=== PATIENT | female | born 1980 | race Caucasian/White ===

== ENCOUNTER 2016-12-02 14:50 | Emergency (ER) | payer OTHER ==
--- NOTE | 2016-12-02 14:52 | PDOC ---
History of Present Illness - General History Source: Patient Exam Limitations: No Limitations - History of Present Illness Initial Comments: 12/02/16 14:58 The patient is a 36 year old female, with a significant past medical history of polycystic ovary disease, IBS, asthma, and hypothyroidism, who presents to the emergency department with left side abdominal pain for 2 hours. She denies any recent injury or trauma. She denies any over the counter medications for alleviation. She describes her pain as a burning and shooting sensation. She denies any back pain. LMP was last week. She denies recent fevers, chills, headache or dizziness. She denies recent nausea, vomit, diarrhea or constipation. She denies recent dysuria, vaginal discharge, or vaginal bleeding. Allergies: See Nursing Notes. Past surgical history: None reported. Social history: Nonsmoker. Denies EtOH use and recreational drug use. <Byron Bishop - Last Filed: 12/02/16 15:42> <Enrique Ledezma - Last Filed: 12/02/16 18:24> - General Chief Complaint: Pain Stated Complaint: LEFT SIDE ABD PAIN Time Seen by Provider: 12/02/16 14:51 Past History <Byron Bishop - Last Filed: 12/02/16 15:42> - Past Medical History Anemia: No Asthma: Yes (NO RECENT ATTACK) Cancer: No Cardiac Disorders: No CVA: No COPD: No CHF: No Dementia: No Diabetes: No GI Disorders: Yes (IBS) Disorders: No HTN: No Hypercholesterolemia: No Liver Disease: No Seizures: No Thyroid Disease: Yes (HYPOTHYROID DISEASE) - Surgical History Abdominal Surgery: No Appendectomy: No Cardiac Surgery: No Cholecystectomy: No Lung Surgery: No Neurologic Surgery: No Orthopedic Surgery: No - Psycho/Social/Smoking Cessation Hx Anxiety: No Suicidal Ideation: No Smoking History: Never smoked Have you smoked in the past 12 months: No Hx Alcohol Use: No Drug/Substance Use Hx: Yes (OCCASIONAL) Substance Use Type: None Hx Substance Use Treatment: No <Enrique Ledezma - Last Filed: 12/02/16 18:24> - Past Medical History Allergies/Adverse Reactions: Allergies Allergy/AdvReac Type Severity Reaction Status Date / Time cefdinir [From Omnicef] Allergy Verified 12/02/16 14:51 moxifloxacin HCl Allergy Hives Verified 12/02/16 14:51 [From Avelox] Home Medications: Ambulatory Orders Levothyroxine [Synthroid -] 100 mcg PO DAILY 07/31/13 Amitriptyline HCl [Elavil -] 50 mg PO DAILY 12/02/16 Norethindrone 0.35 mg PO DAILY 12/02/16 Ranitidine HCl [Zantac] 150 mg PO BID 12/02/16 Sertraline HCl [Zoloft] 150 mg PO DAILY 12/02/16 Abd/GI Specific PMHX - Complaint Specific PMHX GERD: No GI Ulcer Disease: No <Enrique Ledezma - Last Filed: 12/02/16 18:24> Review of Systems - Review of Systems Able to Perform ROS?: Yes Comments:: 12/02/16 14:59 GENERAL/CONSTITUTIONAL: No: fever, chills, weakness, loss of appetite. HEAD, EYES, EARS, NOSE AND THROAT: No: change in vision, ear pain, discharge, sore throat, throat swelling. CARDIOVASCULAR: No: chest pain, lightheadedness, palpitations, syncope RESPIRATORY: No: cough, shortness of breath, wheezing, hemoptysis, stridor. GASTROINTESTINAL:+left sided abd pain. No: nausea, vomiting, diarrhea, abdominal cramping, rectal bleeding, constipation. GENITOURINARY: No: dysuria, hematuria, frequency, urgency, flank pain. MUSCULOSKELETAL: No: back pain, neck pain, joint pain, muscle swelling or pain SKIN : No: lesions, pallor, rash or easy bruising. NEUROLOGIC: No: headache, vertigo, paresthesias, weakness ENDOCRINE: No: unexplained weight gain or loss HEMATOLOGIC/LYMPHATIC: No: anemia, easy bleeding, swelling nodes. <Byron Bishop - Last Filed: 12/02/16 15:42> *Physical Exam - Physical Exam Comments: 12/02/16 14:59 GENERAL: The patient is in no acute distress. HEAD: Normal with no signs of trauma. EYES: PERRLA, EOMI, sclera anicteric, conjunctiva clear. ENT: Ears normal, nares patent, oropharynx clear without exudates. Moist mucous membranes. NECK: Normal range of motion, supple without lymphadenopathy, JVD, or masses. LUNGS: Breath sounds equal, clear to auscultation bilaterally. No wheezes, and no crackles. HEART: Regular rate and rhythm, normal S1 and S2 without murmur, rub or gallop. ABDOMEN: Tenderness left lower quadrant. Soft, normoactive bowel sounds. No guarding, no rebound. No masses palpable. EXTREMITIES: Normal range of motion, no edema. No clubbing or cyanosis. No erythema, or tenderness. NEUROLOGICAL: Cranial nerves II through XII grossly intact. Normal speech. No focal neurological deficits. MUSCULOSKELETAL: Back non-tender to palpation, no CVA tenderness SKIN: Warm, Dry, normal turgor, no rashes or lesions noted. <Byron Bishop - Last Filed: 12/02/16 15:42> ED Treatment Course - LABORATORY CBC & Chemistry Diagram: 12/02/16 15:15 12/02/16 15:15 <Byron Bishop - Last Filed: 12/02/16 15:42> - LABORATORY CBC & Chemistry Diagram: 12/02/16 15:15 12/02/16 15:15 - ADDITIONAL ORDERS Additional order review: 12/02/16 18:21 Pt is doing well, pain is subsiding. 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 Discharge home. <Enrique Ledezma - Last Filed: 12/02/16 18:24> *DC/Admit/Observation/Transfer - Attestations Scribe Attestion: 12/02/16 14:56 Documentation prepared by Byron Bishop, acting as medical doctor nuclear medicine for Enrique Ledezma MD. <Byron Bishop - Last Filed: 12/02/16 15:42> - Discharge Dispostion Admit: No <Enrique Ledezma - Last Filed: 12/02/16 18:24> Diagnosis at time of Disposition: Abdominal pain Qualifiers: Abdominal location: left lower quadrant Qualified Code(s): R10.32 - Left lower quadrant pain - Discharge Dispostion Disposition: HOME Condition at time of disposition: Good - Patient Instructions Printed Discharge Instructions: DI for Abdominal Pain-Adult Additional Instructions: Fluids, rest, Motrin If worsen return to ER
[2016-12-02] MEDS ORDERED: SODIUM CHLORIDE 1,000 ML IV SCH (15:15)
[2016-12-02 15:16] VITALS: PULSE 93; TEMP 98.3; BMI 38.7
[2016-12-02 15:38] LABS: BASOPHIL 2.1 % (0-2.0); EOSINOPHIL 1.2 % (0-4.5); MCHC 34.4 g/dl (32.0-36.0); MEAN CELL VOLUME 84.2 fl (80-96); MEAN PLT VOLUME 7.2 fl (7.5-11.1); NEUTROPHILS 70.9 % (42.8-82.8); PLATELET COUNT 381 K/MM3 (134-434); RDW 12.6 % (11.6-15.6)
[2016-12-02 15:52] LABS: ALBUMIN 4.2 g/dl (3.5-5.0); ALK PHOS 48 U/L (32-92); ANION GAP 6 (8-16); CO2 29 mmol/L (22-28); CREATININE 0.9 mg/dl (0.6-1.3); GLUCOSE,RANDOM 103 mg/dl (74-106); SGOT/AST 32 U/L (10-42); SGPT/ALT 32 U/L (10-40); TOT PROT 7.4 g/dl (6.4-8.3)
[2016-12-02 16:08] LABS: BILIRUBIN,TOTAL < 0.3 mg/dl (0.2-1.0)
[2016-12-02 16:26] LABS: PH,URINE 7.5 (4.5-8); URINE APPEARANCE Clear; URINE BILIRUBIN Negative (NEGATIVE); URINE BLOOD Trace-intact (NEGATIVE); URINE GLUCOSE (UA) Negative (NEGATIVE); URINE KETONE Negative (NEGATIVE); URINE LEUK ESTERASE Trace (NEGATIVE); URINE NITRITE Negative (NEGATIVE); URINE PROTEIN Negative (NEGATIVE); URINE UROBILINOGEN 0.2 E.U/dl (0.2-1.0)
[2016-12-02 16:28] LABS: URINE COLOR YELLOW
[2016-12-02 17:26] VITALS: BP 105/56
== END 2016-12-02 18:25 | disposition home or self-care (01) ==
LOC: FER 14:50
PROC: 3E0337Z Introduction of Electrolytic and Water Balance Substance into Peripheral Vein, Percutaneous Approach (ICD-10-PCS; principal; 2016-12-02)
DX: R10.32 Left lower quadrant pain (principal); E28.2 Polycystic ovarian syndrome; K58.9 Irritable bowel syndrome, unspecified; J45.909 Unspecified asthma, uncomplicated; E03.9 Hypothyroidism, unspecified
CPT/HCPCS: 36415; 74177-TC; 80053; 81003; 84703; 85025; 99282-25

== ENCOUNTER 2017-03-10 16:42 | Emergency (ER) | payer OTHER ==
[2017-03-10 17:03] VITALS: PULSE 95; TEMP 98.3; BMI 37.2
[2017-03-10 17:30] LABS: BASOPHIL 0.9 % (0-2.0); EOSINOPHIL 2.6 % (0-4.5); MCH 28.9 pg (25.7-33.7); MCHC 33.8 g/dl (32.0-36.0); MEAN CELL VOLUME 85.7 fl (80-96); MEAN PLT VOLUME 7.8 fl (7.5-11.1); NEUTROPHILS 67.9 % (42.8-82.8); PLATELET COUNT 329 K/MM3 (134-434); RDW 12.7 % (11.6-15.6); WHITE BLOOD COUNT 5.5 K/mm3 (4.0-10.8)
--- NOTE | 2017-03-10 17:34 | PDOC ---
History of Present Illness - General History Source: Patient (Referred by Dr. Gilbert for Chest pain / SOB. ) Exam Limitations: No Limitations - History of Present Illness Associated Symptoms: reports: chest pain, shortness of breath <Demetrius Feldman - Last Filed: 03/10/17 18:42> - General History Source: Patient (Patient provided the information about chest pain at deep inspiration. Dr Gee examined patient in the office, concerned she may have a PE. ) Exam Limitations: No Limitations - History of Present Illness Timing/Duration: unsure, getting worse Severity: mild, moderate Associated Symptoms: reports: denies symptoms <Kyrie Huynh S - Last Filed: 03/13/17 12:40> - General Chief Complaint: Chest Pain Stated Complaint: CHEST PAIN, R/O PE Time Seen by Provider: 03/10/17 17:02 Past History - Past Medical History Asthma: Yes Psychiatric Problems: Yes (anxiety, depression) Other medical history: Hypothyroid, GERD, chronic fatigue, - Surgical History Abdominal Surgery: Yes (C-sectionx1) GI Surgery: Yes (colonoscopy) Other Surgical History: 03/10/17 18:44 Septoplasty.(2012) - Family Disease History Family Disease History: Other: Father (HTN, CT, Sleep apnea), Mother (HTN, Hypercholesterolemia) <Demetrius Feldman - Last Filed: 03/10/17 18:42> - Travel Traveled outside of the country in the last 30 days: Yes Close contact w/someone who was outside of country & ill: Yes - Past Medical History Anemia: No Asthma: Yes (NO RECENT ATTACK) Cancer: No Cardiac Disorders: No CVA: No COPD: No CHF: No Dementia: No Diabetes: No GI Disorders: Yes (IBS) Disorders: No HTN: No Hypercholesterolemia: No Liver Disease: No Psychiatric Problems: Yes (anxiety) Seizures: No Thyroid Disease: Yes (HYPOTHYROID DISEASE) Other medical history: MIGRAINE - Surgical History Abdominal Surgery: No Appendectomy: No Cardiac Surgery: No Cholecystectomy: No Lung Surgery: No Neurologic Surgery: No Orthopedic Surgery: No - Immunization History Immunization Up to Date: Yes - Suicide/Smoking/Psychosocial Hx Smoking History: Never smoked Have you smoked in the past 12 months: No Hx Alcohol Use: No Drug/Substance Use Hx: No Substance Use Type: None Hx Substance Use Treatment: No <Kyrie Huynh - Last Filed: 03/13/17 12:40> - Past Medical History Allergies/Adverse Reactions: Allergies Allergy/AdvReac Type Severity Reaction Status Date / Time cefdinir [From Omnicef] Allergy Verified 03/10/17 16:53 moxifloxacin HCl Allergy Hives Verified 03/10/17 16:53 [From Avelox] Home Medications: Ambulatory Orders Levothyroxine [Synthroid -] 100 mcg PO DAILY 07/31/13 Amitriptyline HCl [Elavil -] 50 mg PO DAILY 12/02/16 Norethindrone 0.35 mg PO DAILY 12/02/16 Ranitidine HCl [Zantac] 150 mg PO BID 12/02/16 Sertraline HCl [Zoloft] 100 mg PO DAILY 12/02/16 Ascorbate Calcium/Bioflavonoid [Maggie-C 1,000 mg Tablet] 1 each PO ASDIR Diclofenac Sodium 0 mg PO PRN PRN 03/10/17 Metformin HCl 500 mg PO HS 03/10/17 Review of Systems - Review of Systems Respiratory: Yes: Shortness of Breath Cardiac (ROS): Yes: Chest Pain All Other Systems: Reviewed and Negative <Demetrius Feldman - Last Filed: 03/10/17 18:42> - Review of Systems Able to Perform ROS?: Yes Is the patient limited Maori proficient: Yes Constitutional: No: Symptoms Reported, See HPI, Chills, Diaphoresis, Fever, Loss of Appetite, Malaise, Night Sweats, Weakness, Weight Stable, Unintentional Wgt. Loss, Unexplained wgt Loss, Other HEENTM: No: Symptoms Reported, See HPI, Eye Pain, Blurred Vision, Tearing, Recent change in vision, Double Vision, Cataracts, Ear Pain, Ocular Prothesis, Ear Discharge, Nose Pain, Nose Congestion, Tinnitus, Nose Bleeding, Hearing Loss , Throat Pain, Throat Swelling, Mouth Pain, Dental Problems, Difficulty Swallowing, Mouth Swelling, Other Respiratory: Yes: Other (Mild to moderate tenderness left upper chest at certain motions and deep inspiration) Cardiac (ROS): No: Symptoms Reported, See HPI, Chest Pain, Edema, Irregular Heart Rate, Lightheadedness, Palpitations, Syncope, Chest Tightness, Other ABD/GI: No: Symptoms Reported, See HPI, Abdominal Distended, Abd. Pain w/ defecation, Blood Streaked Bowels, Constipated, Diarrhea, Difficulty Swallowing , Nausea, Poor Appetite, Poor Fluid Intake, Rectal Bleeding, Vomiting, Indigestion, Abdominal cramping, Tarry Stools, Other Musculoskeletal: No: Symptoms Reported, See HPI, Back Pain, Gout, Joint Pain, Joint Swelling, Muscle Pain, Muscle Weakness, Neck Pain, Joint Stiffness, Other Integumentary: No: Symptoms Reported, See HPI, Bruising, Change in Color, Change in Hair/Nails, Dryness, Erythema, Flushing, Lesions, Lumps, Pallor, Pruritus, Rash, Sweating, Other Neurological: No: Symptoms reported, See HPI, Headache, Numbness, Paresthesia, Pre-Existing Deficit, Seizure, Tingling, Tremors, Weakness, Unsteady Gait, Ataxia, Dizziness, Other Psychiatric: No: Anxiety, Depression, Frequent Crying, Stressors, Sleep Pattern Change, Emotional Problems, Mood Swings, Change in Appetite, Other All Other Systems: Reviewed and Negative <Kyrie Huynh S - Last Filed: 03/13/17 12:40> *Physical Exam - Vital Signs Last Vital Signs Temp Pulse Resp BP Pulse Ox 98.3 F 95 H 18 110/51 98 03/10/17 16:43 03/10/17 16:43 03/10/17 16:43 03/10/17 16:43 03/10/17 16:43 - Physical Exam Respiratory/Chest: positive: Lungs Clear Cardiovascular: positive: Tachycardia, Other (Discomfort in left side of chest with deep inspiration. ) Gastrointestinal/Abdominal: positive: Soft Extremity: positive: Other (No leg edema. ) <Demetrius Feldman - Last Filed: 03/10/17 18:42> - Vital Signs Last Vital Signs Temp Pulse Resp BP Pulse Ox 98.3 F 95 H 18 110/51 98 03/10/17 16:43 03/10/17 16:43 03/10/17 16:43 03/10/17 16:43 03/10/17 16:43 <Kyrie Huynh S - Last Filed: 03/13/17 12:40> Heart Score/ECG Review - ECG Intrepretation Comment:: 03/10/17 18:30 Normal sinus rhythm. Normal ECG <Demetrius Feldman - Last Filed: 03/10/17 18:42> ED Treatment Course - LABORATORY CBC & Chemistry Diagram: 03/10/17 17:19 03/10/17 17:19 - ADDITIONAL ORDERS Additional order review: Laboratory Results 03/10/17 03/10/17 17:19 17:10 Sodium 134 L Potassium 4.2 Chloride 99 Carbon Dioxide 27 Anion Gap 8 BUN 11 Creatinine 1.1 D Creat Clearance w eGFR 56.52 Random Glucose 96 Calcium 9.1 Total Bilirubin 0.2 D AST 30 ALT 25 D Alkaline Phosphatase 51 Total Protein 7.6 Albumin 4.2 Serum , Qual Negative 03/10/17 17:19 RBC 4.86 MCV 85.7 MCHC 33.8 RDW 12.7 MPV 7.8 Neutrophils % 67.9 Lymphocytes % 21.4 Monocytes % 7.2 Eosinophils % 2.6 D Basophils % 0.9 <Demetrius Feldman - Last Filed: 03/10/17 18:42> - LABORATORY CBC & Chemistry Diagram: 03/10/17 17:19 03/10/17 17:19 <Kyrie Huynh - Last Filed: 03/13/17 12:40> *DC/Admit/Observation/Transfer - Attestations Scribe Attestion: 03/10/17 18:14 Documentation prepared by Demetrius Feldman, acting as medical researcher for Kyrie Huynh MD/DO. <Demetrius Feldman - Last Filed: 03/10/17 18:42> - Discharge Dispostion Admit: No <Kyrie Huynh - Last Filed: 03/13/17 12:40> Diagnosis at time of Disposition: Chest pain of uncertain etiology - Discharge Dispostion Disposition: HOME Condition at time of disposition: Good - Referrals Referrals: Lisa Gilbert MD [Primary Care Provider] - - Patient Instructions Printed Discharge Instructions: DI for Atypical Chest Pain - Post Discharge Activity Forms/Work/School Notes: Back to Work
[2017-03-10 17:41] LABS: ALBUMIN 4.2 g/dl (3.5-5.0); ALK PHOS 51 U/L (32-92); ANION GAP 8 (8-16); BILIRUBIN,TOTAL 0.2 mg/dl (0.2-1.0); CALCIUM 9.1 mg/dl (8.4-10.2); CO2 27 mmol/L (22-28); CREATININE 1.1 mg/dl (0.6-1.3); GLUCOSE,RANDOM 96 mg/dl (74-106); SGOT/AST 30 U/L (10-42); SGPT/ALT 25 U/L (10-40); TOT PROT 7.6 g/dl (6.4-8.3)
[2017-03-10 18:34] LABS: INR 1.19 (0.82-1.09); PROTHROMBIN TIME (PATIENT) 13.3 SEC (10.2-13.0)
[2017-03-10 19:12] VITALS: BP 113/76
--- NOTE | 2017-03-12 08:46 | EKG ---
Test Reason : Blood Pressure : / mmHG Vent. Rate : 088 BPM Atrial Rate : 088 BPM P-R Int : 154 ms QRS Dur : 082 ms QT Int : 350 ms P-R-T Axes : 006 060 024 degrees QTc Int : 423 ms NORMAL SINUS RHYTHM NORMAL ECG NO PREVIOUS ECGS AVAILABLE Confirmed by CHRISTIE CARLOS MD ([id number]) on 03/12/2017 8:46:25 AM Referred By: DR ABREU Confirmed By:CHRISTIE CARLOS MD
== END 2017-03-10 20:20 | disposition home or self-care (01) ==
LOC: FER 16:42
DX: R07.89 Other chest pain (principal); J45.909 Unspecified asthma, uncomplicated; F41.8 Other specified anxiety disorders; E03.9 Hypothyroidism, unspecified; K21.9 Gastro-esophageal reflux disease without esophagitis; R53.82 Chronic fatigue, unspecified
CPT/HCPCS: 36415; 71275-TC; 80053; 84703; 85025; 85610; 93005; 99283-25